=== PATIENT | male | born 1955 | race Caucasian/White ===

== ENCOUNTER 2018-05-22 14:29 | Observation (INO) | payer OTHER ==
[~2018-05-22] VITALS: Ht 172.7 cm; Wt 94.6 kg
[2018-05-22] MEDS ORDERED: VENTOLIN HFA18 GM INH (16:01)
[2018-05-22] MEDS ORDERED: HYDROCHLOROTHIA50 MG PO (16:02)
[2018-05-22] MEDS ORDERED: ZESTRIL40 MG PO (16:02)
[2018-05-22] MEDS ORDERED: AMLODIPINE BES2.5 MG PO (16:02)
[2018-05-22] MEDS ORDERED: LIPITOR40 MG PO (16:03)
[2018-05-22] MEDS ORDERED: LANTUS100 UNITS/ SUB-Q (16:03)
[2018-05-22] MEDS ORDERED: METFORMIN HCL1000 MG PO (16:03)
--- NOTE | 2018-05-22 20:30 | NUR ---
PT ARRIVED TO FLOOR VIA STRETCHER, HE WAS ABLE TO STAND AND TRANSFER HIMSELF ONTO THE BED THOUGH HE IS IMPULSIVE AND DOES NOT FOLLOW DIRECTIONS WELL. ORIENTED X4, SLIGHTLY DROWSY AND IRRITABLE. DENIES PAIN. LUNGS CLEAR, RA. HR REGULAR. NICARDIPINE GTT IN PLACE, WAS AT 5, TITRATED UP TO 7.5 FOR BP: 174/81(102) AT THIS TIME. BOWEL TONES ACTIVE, DENIES NAUSEA. SKIN APPEARS GROSSLY INTACT, NO EDEMA NOTED, CMS INTACT. IV TO LEFT FOREARM PATENT, DRESSING INTACT. NEW 22G IV PLACED IN LEFT AC BY DM ENGLISH. BED ALARM ON FOR SAFETY. PT'S BARRIE REMAINS AT BEDSIDE.
--- NOTE | 2018-05-22 23:00 | NUR ---
PT OBSERVED FROM NURSES' STATION ROLLING IN THE BED, LEGS NOW OVER THE SIDE. IN TO ASSIST PT AND HE EXCLAIMS "MOLLIE LEAVE ME ALONE!" LEGS PLACED BACK IN BED BY STAFF, PT NOT BEING VERY COOPERATIVE. RAILS RAISED FOR SAFETY AND BED ALARM REMAINS ON. PT REMAINS ORIENTED, HE IS JUST TIRED AND WANTS TO NOT BE BOTHERED. WILL CONTINUE TO MONITOR.
--- NOTE | 2018-05-23 00:15 | NUR ---
ASSESSMENT COMPLETED. NO CHANGES FROM PREVIOUS ASSESSMENT. NICARDIPINE GTT CONTINUES AT 7.5MG/HR. IV SITES REINFORCED WITH COBAN SINCE PT IS VERY ACTIVE IN BED. BED ALARM REMAINS ON FOR SAFETY, RAILS UP TO KEEP LIMBS IN BED.
--- NOTE | 2018-05-23 00:30 | NUR ---
NICARDIPINE DRIP TITRATED TO 5MG/HR. BP: 130/43(65).
--- NOTE | 2018-05-23 00:58 | NUR ---
PT HEARD FROM NURSES' STATION TELLING HIS THAT HE NEEDS TO GO TO THE BATHROOM. STOOD AT SIDE OF BED WITH SBA, VOIDED 200ML INTO URINAL AND THEN RETURNED TO BED. BED ALARM ON FOR SAFETY.
--- NOTE | 2018-05-23 02:13 | NUR ---
PT ATTEMPTED TO EXIT THE BED WITHOUT CALLING, STATING HE NEEDED TO USE BATHROOM. ASSISTED HIM TO SIDE OF BED AND GAVE HIM URINAL. PT UPSET THAT I ASKED HIM TO USE URINAL AT BEDSIDE, RATHER THAN WALK INTO BATHROOM. EXPLAINED THAT I DON'T WANT HIM WALKING AROUND AT THIS TIME AND THAT I NEED TO MEASURE OUTPUT. PT STATES "NEVERMIND, I DON'T WANT TO PEE IN THE BOTTLE" AND GOT BACK INTO BED. BED ALARM BACK ON.
--- NOTE | 2018-05-23 03:21 | NUR ---
PT RESTING COMFORTABLY, APPEARS TO BE SLEEPING. NO APPARENT DISTRESS. RESPIRATIONS EVEN AND UNLABORED, RR:19, HR:84. NEW NICARDIPINE BAG HUNG, DRIP CONTINUES AT 5MG/HR. WILL ALLOW FOR REST AND CONTINUE TO MONITOR.
--- NOTE | 2018-05-23 04:45 | NUR ---
PT SET OFF BED ALARM, FOUND STANDING AT BEDSIDE, TRYING TO TELL HIM TO STOP. PT DOES NOT FOLLOW COMMANDS, IS EXTREMELY IRRITABLE. PT STATES HE NEEDS TO USE BATHROOM AND WON'T USE THE URINAL, HAT PLACED IN TOILET. PT AMBULATED WITH SBA TO BATHROOM, APPEARS STEADY FEET THOUGH HE IS HIGHLY IMPULSIVE. PT VOIDED 250ML AND THEN RETURNED TO BED. ASSESSMENT COMPLETED, PT REPORTS 5/10 HEADACHE, STATES IT IS NOT SEVERE WHEN HE WAS IN THE E.D., PRN TYLENOL GIVEN. NO OTHER CHANGES FROM PREVIOUS ASSESSMENT. NICARDIPINE GTT CONTINUES AT 5MG/HR. PT REMINDED TO NOT EXIT BED WITHOUT CALLING, BED ALARM ON FOR SAFETY.
--- NOTE | 2018-05-23 06:47 | NUR ---
PT RESTING, NO APPARENT DISTRESS. RR:18, HR:79.
--- NOTE | 2018-05-23 07:16 | EKG ---
[facility] [address] [place], [place] [address] Signed Normal sinus rhythm Left axis deviation Abnormal ECG No previous ECGs available Confirmed by MARVA SHARIF MD ([id number] on 05/23/2018 7:16:30 AM Electronically Signed By: MARVA SHARIF MD 05/23/18 0716 PATIENT NAME: CIARA BLOUNT Electrocardiogram DATE OF : 59 PHYSICIAN: MARVA SHARIF MD REPORT #: [id number] REPORT IS CONFIDENTIAL AND NOT TO BE RELEASED WITHOUT AUTHORIZATION
--- NOTE | 2018-05-23 07:57 | NUR ---
REPORT RC'D FROM [facility] AND FLO. PT SITTING AT EDGE OF BED WITH AT BEDSIDE. DR. SHARIF IN ROOM TO ASSESS PT AND UPDATE PLAN OF CARE. RECORDS [facility]CP AND [facility] [place] TO BE REQUESTED.
--- NOTE | 2018-05-23 09:00 | NUR ---
PT RESTING IN BED WITH AT BEDSIDE. PT AWAKENS EASILY TO VERBALI STIMULI. PT A&O X4 BUT FORGETFUL AT TIMES, BED ALARM ON, PT NOTED TO BE IMPULSIVE AND UNINTERESTED IN FOLLOWING COMANDS, REINFORCE SAFETY AND FALL PREVENTION. NICARDIPINE GTT TITRATED TO 2.5 MG/HR, HOME CARDIAC MEDICATION RESTARTED THIS MORNING, WILL CONTINUE TO MONITOR VITAL SIGNS. LUNGS CLEAR THROUGHOUT, ON ROOM AIR. PT DENIES NAUSEA, ADVANCE DIET TOELRATED, PT GIVEN BEEF BROTH, STATES DECREASED APPETITE, CONTINUE TO ENCOURAGE PO INTAKE TOLERATED. PT VOIDING QS. DENIES PAIN.
--- NOTE | 2018-05-23 09:30 | NUR ---
NICARDIPINE GTT STOPPED AT THIS TIME, LAST VITAL SIGNS, HR 73, BP 156/61, MAP 83. WILL CONTIUE TO MONITOR.
--- NOTE | 2018-05-23 10:00 | NUR ---
PT RESTING COMFORTABLY IN BED WITH EYES CLOSED, RESPIRATIONS EVEN AND UNLABORED. LAST BP 145/55, MAP 79, HR 71. NO ACUTE DISTRESS NOTED.
--- NOTE | 2018-05-23 11:00 | NUR ---
PT ESTING COMFORTABLY IN BED WITH EYES CLOSED, RESPIRATIONS EVEN AND UNLABORED, NO ACUTE CHANGES. LAST BP 146/64, MAP 83, HR 71.
--- NOTE | 2018-05-23 12:00 | NUR ---
PT RESTING IN BED WITH AT BEDSIDE. BS NOTED TO BE 163, 1 UNIT INSULIN TO BE GIVEN. LUNCH ORDER OBTAINED. NO ACUTE CHANGES. LAST BP 142/69, MAP 86, HR 72. PT TO POSSIBLY DISCHARGE THIS AFTERNOON, PT AND UPDATED ON PLAN.
--- NOTE | 2018-05-23 14:15 | NUR ---
INDEPTH EDUCATION PROVIDED ON MEDICATION MANAGEMENT, HYPERTENSION, AND STROKE PREVENTION. WRITTEN MATERIAL PROVIDED, VERBALIZED UNDERSTANDING AND ABLE TO REPEAT BACK INFORMATION. ADIVED TO FOLLOW UP WITH PCP ON SCHEDULED DATE ON 05/27/18, VERBALIZED UNDERSTANDING AND AGREEABLE. ADVISED NOT TO DRIVE. CARE RIDE PROVIDED. ALL PERSONAL BELONGINGS RETURNED. PT ASSITED TO FRONT VIA WHEELCHAIR WITH NURSING PERSONEL.
[2018-05-24] MEDS ORDERED: PENICILLIN V P500 MG PO (09:40)
== END 2018-05-23 14:15 | disposition home or self-care (01) ==
LOC: ED 14:29 → CCU 14:31 → ED 18:55 → CCU 05-23 14:15
PROVIDERS: ADMIT Internal Medicine
DX: I16.0 Hypertensive urgency (principal); I10 Essential (primary) hypertension; R80.9 Proteinuria, unspecified; E11.9 Type 2 diabetes mellitus without complications; E78.5 Hyperlipidemia, unspecified; Z91.19 Patient's noncompliance with other medical treatment and regimen; Z87.891 Personal history of nicotine dependence; Z79.4 Long term (current) use of insulin; Z79.899 Other long term (current) drug therapy
CPT/HCPCS: 70450; 80048; 80053; 81001; 83690; 83735; 84484; 85025; 93005; 93010; 96361; 96372; 96374; 96375; 96376; 99285-25; C9113; G0378; G0480; J0360; J0780; J1200; J1650; J1815; J2405; J3475; J7030; J7060

== ENCOUNTER 2018-05-24 08:38 | Emergency (ER) | payer OTHER ==
[~2018-05-24] VITALS: Ht 170.2 cm; Wt 94.6 kg
[~2018-05-24 08:38] MED LIST: AMLODIPINE BES2.5 MG PO; HYDROCHLOROTHIA50 MG PO; LANTUS100 UNITS/ SUB-Q; LIPITOR40 MG PO; METFORMIN HCL1000 MG PO; VENTOLIN HFA18 GM INH; ZESTRIL40 MG PO
--- OUTSIDE RECORDS SUMMARY | 2018-05-24 08:44 | XMS ---
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 Susi has no Care Guidelines for this patient. Keila VISIT COUNT (12 MO.) [address] [facility] TOTAL 2 NOTE: Visits indicate total known visits. ED/C VISIT TRACKING (12 MO.) 05/24/2018 08:39 [facility] [place] TYPE: Emergency COMPLAINT: - SEEING RED SPOTS 05/22/2018 14:30 [facility] TYPE: Emergency COMPLAINT: - HYPERTENSION URGENCY INPATIENT VISIT TRACKING (12 MO.) 05/22/2018 14:31 [facility] [place] TYPE: Critical Care COMPLAINT: - HYPERTENSION URGENCY DIAGNOSES: - Proteinuria, unspecified - correction (current) use of insulin - Personal history of nicotine dependence - Hypertensive urgency - Hyperlipidemia, unspecified - Nausea with vomiting, unspecified - Type 2 diabetes mellitus without complications - Patient's noncompliance with other medical treatment and regimen - Other terminal supervisor (current) drug therapy - Essential (primary) hypertension [email or web address]
[2018-05-24] MEDS ORDERED: PENICILLIN V P500 MG PO (09:40)
== END 2018-05-24 10:09 | disposition home or self-care (01) ==
LOC: ED 08:38
DX: H53.9 Unspecified visual disturbance (principal); K04.7 Periapical abscess without sinus; I10 Essential (primary) hypertension; E11.9 Type 2 diabetes mellitus without complications; Z87.891 Personal history of nicotine dependence; Z79.899 Other long term (current) drug therapy; Z79.4 Long term (current) use of insulin
CPT/HCPCS: 99284